=== PATIENT | female | born 1990 | race African-American/Black ===

== ENCOUNTER 2020-02-12 08:08 | Day surgery (SDC) | payer OTHER ==
[2020-02-09 14:46] VITALS: BMI 21.9
[2020-02-12 08:33] LABS: INR-International Normal Ratio 1.1; Prothrombin Time 14.3 SEC (12.0-14.7)
[2020-02-12 08:34] LABS: PTT 31.5 SEC (22.9-36.1)
[2020-02-12 08:38] LABS: #Basophils 0.1 thou/uL (0.0-0.2); #Eosinphils 0.3 thou/uL (0.0-0.7); #Lymphocytes 0.8 thou/uL (1.20-3.40); #Monocytes 0.4 thou/uL (0.11-0.59); #Neutrophils 4.2 thou/uL (1.40-6.50); %Basophils 1.1 % (0.0-1.0); %Eosinophils 4.5 % (0.0-10.0); %Lymphocytes 13.6 % (21.0-51.0); %Monocytes 7.3 % (0.0-10.0); %Neutrophils 73.6 % (42.0-75.0); Hemoglobin 11.8 g/dL (12.0-16.0); Mean Corpuscular HGB CONC 31.1 g/dL (32.0-36.0); Mean Corpuscular Hemoglobin 23.9 pg (27.0-31.0); Mean Platelet Volume 10.8 fL (7.4-10.4); Platelet Count 358 thou/uL (130-400); RBC Distribution Width 15.8 % (11.5-14.5); Red Blood Cell (RBC) Count 4.93 mill/uL (4.20-5.40); White Blood Cell (WBC) Count 5.7 thou/uL (4.8-10.8)
[2020-02-12 08:47] LABS: ALT (SGPT) Less than 7 U/L (8-55); AST (SGOT) 19 U/L (5-34); Albumin 2.7 g/dL (3.5-5.0); Alkaline Phosphatase 65 U/L (40-110); Anion Gap 11 mmol/L (10-20); BUN (Urea Nitrogen) 7 mg/dL (7.0-18.7); Bilirubin, Total 0.3 mg/dL (0.2-1.2); Calc. Creatinine Clearance 106 mL/min (70-130); Calcium 7.6 mg/dL (7.8-10.44); Carbon Dioxide 22 mmol/L (22-29); Chloride 109 mmol/L (98-107); Estimated GFR-MDRD Greater than 90; Glucose 152 mg/dL (70-105); Potassium 3.6 mmol/L (3.5-5.1); Protein, Total 4.7 g/dL (6.0-8.3); Sodium 138 mmol/L (136-145)
[2020-02-12] MEDS ORDERED: Sodium Bicarbonate 2.5 MEQ/5 ML VIAL ONE (09:36)
[2020-02-12] MEDS ORDERED: Lidocaine 1% PF 5 ML VIAL ONE (09:36)
--- NOTE | 2020-02-12 10:27 | ULT ---
Sonogram abdomen limited HISTORY: Abdominal pain. Ascites. FINDINGS: Exam was originally scheduled as a sonographic guided paracentesis. Sonographic survey shows minimal free fluid around the liver and the remainder of the abdomen. Repositioning of the patient was performed in an attempt to maximize the fluid pocket size. A fluid pocket pocket of sufficient size was never produced to allow safe sampling. Paracentesis will therefore not be performed. IMPRESSION : Interval decrease in free fluid in the abdomen since the prior CT exam. Paracentesis unable to be per formed.
[2020-02-12 10:40] VITALS: BP 117/57; TEMP 98.2
== END 2020-02-12 09:50 | disposition home or self-care (01) ==
LOC: ULT 08:08
PROVIDERS: ATTEND Physician Assistant Medical
DX: K76.1 Chronic passive congestion of liver (principal); R18.8 Other ascites; J45.909 Unspecified asthma, uncomplicated; I50.9 Heart failure, unspecified; Z79.82 Long term (current) use of aspirin; Z79.899 Other long term (current) drug therapy; Z88.5 Allergy status to narcotic agent; Z95.0 Presence of cardiac pacemaker
CPT/HCPCS: 36415; 76705; 85025; 85610; 85730; J2001

== ENCOUNTER 2020-06-14 11:04 | Outpatient (CLI) | payer OTHER ==
--- NOTE | 2020-06-14 13:26 | CT ---
EXAM: CT Abdomen Pelvis W WO con PROVIDED CLINICAL HISTORY: Adrenal mass. Left lower quadrant abdominal pain. COMPARISON: 02/02/2020 FINDINGS: Cardiac pacing generator in the subcutaneous soft tissues left upper abdomen is again seen with leads extending superiorly but incompletely imaged. Embolization coils are again seen adjacent to the intrahepatic IVC which is a stable finding. Visualized lung bases are clear aside from minimal atelectasis anteriorly. The hepatic contour is lobulated likely compatible with cirrhosis. Spleen has a normal appearance and is not enlarged. Portal vein is patent, but there is mild dilatation of the portal vein measuring 1.6 cm in diameter and be seen with portal hypertension. No significant varices are seen. Previously described 3.1 cm heterogeneously enhancing mass in the left upper quadrant is again seen. This mass is closely adjacent to the superior pole left kidney. This mass was not seen on a prior CT examination on 03/23/2012 and is not visualized on a noncontrast CT abdomen on 02/21/2014. Based on CT evaluation, this mass could potentially arise from the left adrenal gland or the superior pole of the left kidney. While washout characteristics of this lesion would be suggestive of adrenal adenoma this arises from the adrenal gland, no mass was seen in this region on prior study in 2013. In addition, there is a mass with similar enhancement characteristics seen anterolateral to the abdomina l aorta just below the level of the superior mesenteric artery and abutting the suprarenal IVC which measures 4.4 cm x 2.8 cm. The right adrenal gland and left kidney have a normal CT appearance. Small hypodense lesion inferior pole of the right kidney is again visualized. Urinary bladder has a normal CT appearance. Prominent ventral abdominal hernia is again seen in the epigastric region. There is also evidence of a fat-containing umbilical hernia which does contain fluid. Moderate amount of intraperitoneal free fluid is again seen in the abdomen and pelvis. Heterogeneity is again seen within the left renal vein on arterial phase of imaging. This could be re lated to mixing of artifact. 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 Again a normal infrarenal IVC is not visualized and there is suggestion of a duplicated IVC. There is peripheral calcification seen involving the suprarenal IVC Multiple dilated vascular structures are again seen in the pelvis. There is dilatation of the ovarian veins bilaterally. Urinary bladder has a normal CT appearance. Uterus is grossly within normal limits. There is a fluid attenuation 3 cm circumscribed hypodense lesion left adnexa likely due to left ovarian cyst. Loops of small bowel are normal in caliber. There has been no interval change from the prior exam. IMPRESSION: 1. Heterogeneous masslike structure adjacent to the left anterolateral aspect of the abdominal aorta which abuts the suprarenal IVC. This finding was not present on prior study in 2012 and is more worrisome for interval development of a mass lesion in this region with mass effect on the left renal vein. 2. Left upper quadrant mass, and the origin of this mass is difficult to determine as this abuts both the left adrenal gland and the superior pole left kidney. This mass is similar in appearance to the retroperitoneal mass adjacent to the abdominal aorta and IVC. The masses demonstrate similar [place]ka acteristics of enhancement. As described on the prior exam, these masses could be related to hyper enhancing lymphadenopathy or hyperdense abdominal mass lesions. Again pheochromocytoma would be a dif ferential consideration. Given that the exact origin of the left upper quadrant mass is difficult to discern, a renal lesion is a possibility but is thought less likely as findings are thought to mor e likely be related to mass effect on the superior pole left kidney as opposed to a mass arising from the kidney. Nevertheless findings are worrisome for malignancy. 3. Evidence of cirrhosis and ascites 4. Additional findings as described above.
== END 2020-06-14 11:05 | disposition home or self-care (01) ==
LOC: SCSCT 11:04
PROVIDERS: ATTEND Urology
DX: E27.8 Other specified disorders of adrenal gland (principal)
CPT/HCPCS: 74178